=== PATIENT | male | born 1955 | race Caucasian/White ===

== ENCOUNTER → 2021-03-30 15:52 | Outpatient (CLI) | payer MEDICARE, SELFPAY ==
--- NOTE | 2021-03-30 15:57 | DI.MRI.S_ITS ---
PROCEDURE: MR SHOULDER LT WO CON INDICATIONS: Unspecified rotator cuff tear or rupture of left s TECHNIQUE: Noncontrast oblique coronal T2 fast spin echo with fat saturation, oblique sagittal T1 spin echo and T2 fast spin echo with fat saturation, axial T1 spin echo and T2 fast spin echo with fat saturation through the shoulder. COMPARISON: Outside Film, CR, XR SHOULDER 2+ VIEWS LEFT, 01/31/2021, 7:16. FINDINGS: Image quality: Excellent. Rotator cuff: There is full-thickness tearing of the supraspinatus tendon and the anterior fibers of the infraspinatus tendon from their distal insertions measuring approximately 2 cm in anterior-posterior dimension. There is proximal tendon retraction measuring up to 2.4 cm at the bursal surface, with delamination and further retraction of the articular sided fibers measuring up to 3.7 cm. The teres minor tendon is intact. There is low-grade intrasubstance tearing of the distal subscapularis tendon at the superior insertion. There is no significant rotator cuff muscle atrophy. Bones and bursae: No acute trabecular bone injury. Chronic traction cystic changes are seen at the posterosuperior humeral head and the greater tuberosity near the rotator cuff tendon insertions. Focal glenohumeral cartilage loss is identified. There is moderate acromioclavicular joint osteoarthrosis. A small glenohumeral effusion communicates with the subacromial/subdeltoid bursa. Capsule and soft tissues: There is nondisplaced tearing of the posterosuperior to superior labrum. The biceps tendon anchor is intact. There is moderate tendinosis of the intra-articular portion of the biceps long head tendon. The rotator interval fat is maintained. The glenohumeral ligaments are intact. IMPRESSION: 1. Full-thickness tearing of the supraspinatus tendon and the anterior fibers of the infraspinatus tendon at their distal insertions measuring approximately 2 cm in anterior-posterior dimension. There is 2.4 cm retraction of bursal sided fibers with delamination and further retraction of the articular sided fibers measuring up to 3.7 cm. 2. Mild tendinosis and low grade intrasubstance tearing of the subscapularis tendon at the superior insertion. 3. Moderate biceps long head tendinosis. 4. Nondisplaced tearing of the posterosuperior to superior labrum, which is likely chronic. 5. Moderate acromioclavicular joint osteoarthrosis. 6. Small glenohumeral effusion communicates with the subacromial/subdeltoid bursa. Dictated by: Segundo Ferrari M.D. on 03/30/2021 at 17:06 Approved by: Segundo Ferrari M.D. on 03/30/2021 at 17:11
== END ==
PROVIDERS: PCP Physician Assistant; Referring Provider Orthopaedic Surgery; Visit Provider Orthopaedic Surgery
DX: M75.102 Unspecified rotator cuff tear or rupture of left shoulder, not specified as traumatic (principal); S46.812A Strain of other muscles, fascia and tendons at shoulder and upper arm level, left arm, initial encounter; M19.012 Primary osteoarthritis, left shoulder; M25.412 Effusion, left shoulder
CPT/HCPCS: 73221